=== PATIENT | female | born 1965 | race Caucasian/White ===

== ENCOUNTER 2018-08-08 08:07 | Outpatient (CLI) | payer OTHER | END 2018-08-08 08:08 | disposition home or self-care (01) | LOC: BICMAMMO 08:07 | PROVIDERS: ATTEND Family Medicine | DX: Z12.31 Encounter for screening mammogram for malignant neoplasm of breast (principal) | CPT/HCPCS: 77063; 77067 ==

== ENCOUNTER 2019-11-06 11:13 | Outpatient (CLI) | payer OTHER ==
--- NOTE | 2019-11-06 11:29 | RAD ---
2 view chest: [11/06/2019] Comparison:None available HISTORY: Shortness of breath FINDINGS: Lungs are mildly hyperinflated. Mild increased linear interstitial density. No pneumothorax or pleural fluid. No focal consolidation or alveolar edema. IMPRESSION: Mild interstitial prominence and pulmonary hyperinflation suggesting air trapping. No foc al consolidation or alveolar edema.
== END 2019-11-06 11:14 | disposition home or self-care (01) ==
LOC: RAD 11:13
PROVIDERS: ATTEND Internal Medicine Critical Care Medicine
DX: R06.00 Dyspnea, unspecified (principal); J98.4 Other disorders of lung
CPT/HCPCS: 71046

== ENCOUNTER 2019-11-27 10:26 | Outpatient (CLI) | payer OTHER ==
[~2019-11-27 10:26] MED LIST: Iopamidol 370 76% 100 ML VIAL ONE
--- NOTE | 2019-11-27 11:27 | CT ---
EXAM: CT pulmonary angiogram with IV contrast and 3-D MIP reconstructions PROVIDED CLINICAL HISTORY: Shortness of breath COMPARISON: None FINDINGS: There is no evidence for central or segmental pulmonary embolus. The lungs are free of significant opacity. No pleural fluid or pneumothorax apparent. No evidence for thoracic lymph node enlargement. The airway appears patent and of normal caliber. The visualized portions of the upper abdomen demonstrate no acute findings. The osseous structures demonstrate no concerning lytic or blastic lesions. IMPRESSION: No evidence for central or segmental pulmonary embolus.
== END 2019-11-27 10:27 | disposition home or self-care (01) ==
LOC: CT 10:26
PROVIDERS: ATTEND Internal Medicine Critical Care Medicine
DX: I26.99 Other pulmonary embolism without acute cor pulmonale (principal)
CPT/HCPCS: 71275

== ENCOUNTER 2020-09-05 08:58 | Outpatient (CLI) | payer OTHER ==
--- NOTE | 2020-09-05 09:36 | CT ---
CT neck soft tissues noncontrast: 09/05/2020 HISTORY: 54-year-old female with stridor are 06.1 TECHNIQUE: Ordering physician strongly desired noncontrast CT of neck FINDINGS: Approximately 2.5 cm caudal to the glottis, there is irregular circumferential soft tissue density in the trachea that decreases the cross-sectional area of the trachea. The dimensions are difficult to measure because of the very irregular margins of this tissue. The tracheal lumen is approximately 1 x 0.6 cm. The normal tracheal cross-sectional dimensions inferior to this 1.7 x 1.7 cm. Lung apices are clear. 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 Bilateral submandibular glands are symmetrically small. Within the limitations of a noncontrast scan, no obvious abnormality is identified in the parapharyng eal, posterior cervical, retropharyngeal, parotid, or line out worker, spaces. No thyromegaly. No laryngeal abnormality identified. 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 Neopla sm in this location would be very uncommon, but it is not excluded.
== END 2020-09-05 08:59 | disposition home or self-care (01) ==
LOC: BICCT 08:58
PROVIDERS: ATTEND Internal Medicine Critical Care Medicine
DX: R06.1 Stridor (principal); J39.8 Other specified diseases of upper respiratory tract
CPT/HCPCS: 70490

== ENCOUNTER 2021-06-25 06:48 | Outpatient (CLI) | payer OTHER | END 2021-06-25 06:49 | disposition home or self-care (01) | LOC: BICMRI 06:48 | PROVIDERS: ATTEND Family Medicine | DX: R92.8 Other abnormal and inconclusive findings on diagnostic imaging of breast (principal); N63.20 Unspecified lump in the left breast, unspecified quadrant | CPT/HCPCS: A9577; C8908 ==

== ENCOUNTER 2023-07-13 13:32 | Outpatient (CLI) | payer OTHER | END 2023-07-13 13:33 | disposition home or self-care (01) | LOC: BICMRI 13:32 | PROVIDERS: ATTEND Surgery | DX: D05.12 Intraductal carcinoma in situ of left breast (principal); N64.4 Mastodynia | CPT/HCPCS: A9577; C8908 ==

== ENCOUNTER 2024-07-16 09:35 | Outpatient (CLI) | payer OTHER | END 2024-07-16 09:36 | disposition home or self-care (01) | LOC: BICMRI 09:35 | PROVIDERS: ATTEND Surgery | DX: D05.10 Intraductal carcinoma in situ of unspecified breast (principal) | CPT/HCPCS: A9577; C8908 ==